=== PATIENT | female | born 1995 | race Caucasian/White ===

== ENCOUNTER 2016-09-27 21:23 | Emergency (ER) | payer BC ==
[~2016-09-27] VITALS: Ht 172.7 cm; Wt 72.7 kg
[2016-09-27 21:25] VITALS: BP 118/80; TEMP 98.4
[2016-09-27 22:20] LABS: INFLUENZA B NEGATIVE
[2016-09-27 22:45] VITALS: PULSE 86
== END 2016-09-27 22:46 | disposition home or self-care (01) ==
LOC: COL.ER 21:23
PROVIDERS: Emergency Medicine
DX: J06.9 Acute upper respiratory infection, unspecified (principal)